=== PATIENT | male | born 1950 | race Caucasian/White ===

== ENCOUNTER 2017-06-07 13:02 | Inpatient (IN) | payer MEDICARE ==
[2017-06-07 13:27] VITALS: RESP 16
[2017-06-07] MEDS ORDERED: SODIUM CHLORIDE 0.9% 1,000 ML IV STA (13:36)
[2017-06-07] MEDS ORDERED: RX INFO: IV CONTRAST WAS GIVEN 1 EACH MISC MISCELLANE PRN (13:47)
[2017-06-07 14:14] LABS: Basophils % (A) 0 %; CH 31.5; CHCM 33.1; Eosinophils # (A) 0.2 k/uL (0-0.7); Eosinophils % (A) 1 %; HCT 45.8 % (39.0-53.0); HDW 2.27; HGB 14.9 gm/dL (13.0-17.5); Luc # (Auto) 0.18; Luc % (Auto) 2; Lymphocytes # (A) 2.9 k/uL (1.0-4.8); Lymphocytes % (A) 28 %; MCHC 32.5 g/dL (31.0-37.0); MCV 95.6 fL (80.0-100.0); Mean Platelet Volume 6.9; Monocytes # (A) 0.6 k/uL (0-1.0); Monocytes % (A) 5 %; Neutrophils # (A) 6.5 k/uL (1.3-7.7); Neutrophils % (A) 63 %; RBC 4.79 m/uL (4.30-5.90); RDW 13.1 % (11.5-15.5); WBC 10.3 k/uL (3.8-10.6); WBC (Perox) 10.04
[2017-06-07 14:17] LABS: Partial Thromboplastin Time 23.4 sec (22.0-30.0); Prothrombin Time 10.4 sec (9.0-12.0)
[2017-06-07 14:20] LABS: ALT 35 U/L (21-72); AST 24 U/L (17-59); Alkaline Phosphatase 63 U/L (38-126); Anion Gap 10 mmol/L; Blood Urea Nitrogen 13 mg/dL (9-20); Calcium 9.7 mg/dL (8.4-10.2); Carbon Dioxide 22 mmol/L (22-30); Chloride 106 mmol/L (98-107); Glucose 94 mg/dL (74-99); Non-African American GFR(MDRD) >60 (>60 ml/min/1.73 sqM); Potassium 4.6 mmol/L (3.5-5.1); Sodium 138 mmol/L (137-145); Total Bilirubin 0.7 mg/dL (0.2-1.3); Total Protein 7.5 g/dL (6.3-8.2)
--- NOTE | 2017-06-07 14:20 | ED ---
GI Bleed HPI - General Chief complaint: GI Bleed Stated complaint: Abd Pain/Rectal Bleeding Time Seen by Provider: 06/07/17 13:24 Source: patient, RN notes reviewed Mode of arrival: ambulatory Limitations: no limitations - History of Present Illness Initial comments: 67-year-old male presents emergency Department chief complaint abdominal pain, rectal bleeding. Patient states this started 48 hours ago. Patient states she' s had a history of of chronic constipation and history of rectal bleeding. He states that he occasionally does have to digitally disimpact himself and take a laxative. He states that he occasionally has bleeding at rest. Patient states bleeding stops after 24 hours but has not stopped this time. Patient states he also has abdominal pain in his mid abdomen which is abnormal for him. Patient denies any blood thinners denies any serious abdominal surgeries. He has had multiple colonoscopies in the past most recently 5 years ago. Patient denies headache, dizziness, chest pain, shortness breath, fever or chills. - Related Data Home Medications Medication Instructions Recorded Confirmed Linaclotide [Linzess] 145 mcg PO DAILY 06/07/17 06/07/17 Lisinopril [Zestril] 20 mg PO DAILY 06/07/17 06/07/17 oxyCODONE-APAP 10-325MG [Percocet 0.5 tab PO BID PRN 06/07/17 06/07/17 10-325 mg] Allergies Allergy/AdvReac Type Severity Reaction Status Date / Time No Known Allergies Allergy Verified 06/07/17 14:11 Review of Systems ROS Statement: Those systems with pertinent positive or pertinent negative responses have been documented in the HPI. ROS Other: All systems not noted in ROS Statement are negative. Past Medical History Past Medical History: Hypertension Additional Past Medical History / Comment(s): spinal cord injury History of Any Multi-Drug Resistant Organisms: None Reported Past Surgical History: Tonsillectomy Additional Past Surgical History / Comment(s): right ankle surgery Past Psychological History: No Psychological Hx Reported Smoking Status: Former smoker Past Alcohol Use History: Daily Past Drug Use History: Marijuana General Exam Limitations: no limitations General appearance: alert, in no apparent distress Head exam: Present: atraumatic, normocephalic, normal inspection Respiratory exam: Present: normal lung sounds bilaterally. Absent: respiratory distress, wheezes, rales, rhonchi, stridor Cardiovascular Exam: Present: regular rate, normal rhythm, normal heart sounds. Absent: systolic murmur, diastolic murmur, rubs, gallop, clicks GI/Abdominal exam: Present: soft, tenderness (Mild to moderate periumbilical tenderness), normal bowel sounds. Absent: distended, guarding, rebound, rigid Rectal exam: Present: bloody stool, hemorrhoids Back exam: Absent: CVA tenderness (R), CVA tenderness (L) Course Vital Signs 06/07/17 06/07/17 13:18 15:17 Temperature 97.6 F 98.0 F Pulse Rate 75 64 Respiratory 16 16 Rate Blood Pressure 170/94 165/90 O2 Sat by Pulse 98 99 Oximetry Medical Decision Making - Lab Data Result diagrams: 06/07/17 13:45 06/07/17 13:45 Lab Results 06/07/17 06/07/17 06/07/17 Range/Units 13:45 13:45 13:45 WBC 10.3 (3.8-10.6) k/uL RBC 4.79 (4.30-5.90) m/uL Hgb 14.9 (13.0-17.5) gm/dL Hct 45.8 (39.0-53.0) % MCV 95.6 (80.0-100.0) fL MCH 31.0 (25.0-35.0) pg MCHC 32.5 (31.0-37.0) g/dL RDW 13.1 (11.5-15.5) % Plt Count 398 (150-450) k/uL Neutrophils % 63 % Lymphocytes % 28 % Monocytes % 5 % Eosinophils % 1 % Basophils % 0 % Neutrophils # 6.5 (1.3-7.7) k/uL Lymphocytes # 2.9 (1.0-4.8) k/uL Monocytes # 0.6 (0-1.0) k/uL Eosinophils # 0.2 (0-0.7) k/uL Basophils # 0.0 (0-0.2) k/uL PT (9.0-12.0) sec INR (<1.2) APTT (22.0-30.0) sec Sodium 138 (137-145) mmol/L Potassium 4.6 (3.5-5.1) mmol/L Chloride 106 (98-107) mmol/L Carbon Dioxide 22 (22-30) mmol/L Anion Gap 10 mmol/L BUN 13 (9-20) mg/dL Creatinine 1.06 (0.66-1.25) mg/dL Est GFR (MDRD) Af Amer >60 (>60 ml/min/1.73 sqM) Est GFR (MDRD) Non-Af >60 (>60 ml/min/1.73 sqM) Glucose 94 (74-99) mg/dL Calcium 9.7 (8.4-10.2) mg/dL Magnesium 2.0 (1.6-2.3) mg/dL Total Bilirubin 0.7 (0.2-1.3) mg/dL AST 24 (17-59) U/L ALT 35 (21-72) U/L Alkaline Phosphatase 63 (38-126) U/L Total Creatine Kinase 44 L (55-170) U/L CK-MB (CK-2) 0.2 (0.0-2.4) ng/mL CK-MB (CK-2) Rel Index 0.5 Troponin I <0.012 (0.000-0.034) ng/mL Total Protein 7.5 (6.3-8.2) g/dL Albumin 4.4 (3.5-5.0) g/dL Lipase 48 (23-300) U/L Urine Color Urine Appearance (Clear) Urine pH (5.0-8.0) Ur Specific [place] (1.001-1.035) Urine Protein (Negative) Urine Glucose (UA) (Negative) Urine Ketones (Negative) Urine Blood (Negative) Urine Nitrite (Negative) Urine Bilirubin (Negative) Urine Urobilinogen (<2.0) mg/dL Ur Leukocyte Esterase (Negative) Urine RBC (0-5) /hpf Urine WBC (0-5) /hpf Ur Squamous Epith Cells (0-4) /hpf Urine Bacteria (None) /hpf Urine Mucus (None) /hpf 06/07/17 06/07/17 Range/Units 13:45 14:13 WBC (3.8-10.6) k/uL RBC (4.30-5.90) m/uL Hgb (13.0-17.5) gm/dL Hct (39.0-53.0) % MCV (80.0-100.0) fL MCH (25.0-35.0) pg MCHC (31.0-37.0) g/dL RDW (11.5-15.5) % Plt Count (150-450) k/uL Neutrophils % % Lymphocytes % % Monocytes % % Eosinophils % % Basophils % % Neutrophils # (1.3-7.7) k/uL Lymphocytes # (1.0-4.8) k/uL Monocytes # (0-1.0) k/uL Eosinophils # (0-0.7) k/uL Basophils # (0-0.2) k/uL PT 10.4 (9.0-12.0) sec INR 1.0 (<1.2) APTT 23.4 (22.0-30.0) sec Sodium (137-145) mmol/L Potassium (3.5-5.1) mmol/L Chloride (98-107) mmol/L Carbon Dioxide (22-30) mmol/L Anion Gap mmol/L BUN (9-20) mg/dL Creatinine (0.66-1.25) mg/dL Est GFR (MDRD) Af Amer (>60 ml/min/1.73 sqM) Est GFR (MDRD) Non-Af (>60 ml/min/1.73 sqM) Glucose (74-99) mg/dL Calcium (8.4-10.2) mg/dL Magnesium (1.6-2.3) mg/dL Total Bilirubin (0.2-1.3) mg/dL AST (17-59) U/L ALT (21-72) U/L Alkaline Phosphatase (38-126) U/L Total Creatine Kinase (55-170) U/L CK-MB (CK-2) (0.0-2.4) ng/mL CK-MB (CK-2) Rel Index Troponin I (0.000-0.034) ng/mL Total Protein (6.3-8.2) g/dL Albumin (3.5-5.0) g/dL Lipase (23-300) U/L Urine Color Yellow Urine Appearance Cloudy (Clear) Urine pH 6.5 (5.0-8.0) Ur Specific [place] 1.020 (1.001-1.035) Urine Protein 1+ H (Negative) Urine Glucose (UA) Negative (Negative) Urine Ketones 1+ H (Negative) Urine Blood Trace H (Negative) Urine Nitrite Positive (Negative) Urine Bilirubin Negative (Negative) Urine Urobilinogen <2.0 (<2.0) mg/dL Ur Leukocyte Esterase Moderate H (Negative) Urine RBC 2 (0-5) /hpf Urine WBC 15 H (0-5) /hpf Ur Squamous Epith Cells <1 (0-4) /hpf Urine Bacteria Moderate H (None) /hpf Urine Mucus Rare H (None) /hpf Disposition Clinical Impression: GI bleed, Colitis, UTI (urinary tract infection) Disposition: ADMITTED IP TO THIS HOSP Condition: Stable Referrals: Naina Dickson MD [Primary Care Provider] - 1-2 days Time of Disposition: 15:40
[2017-06-07 14:28] LABS: Creatine Kinase 44 U/L (55-170)
[2017-06-07 14:29] LABS: Appearance,Urine Cloudy (Clear); Bacteria,Urine Moderate /hpf; Bilirubin,Urine Negative (Negative); Glucose,Urine (UA) Negative (Negative); Ketones,Urine 1+ (Negative); Leukocyte Esterase,Urine Moderate (Negative); Mucus,Urine Rare /hpf; Nitrite,Urine Positive (Negative); PH, Urine 6.5 (5.0-8.0); Particle Count 101169; Protein,Urine 1+ (Negative); RBC,Urine 2 /hpf (0-5); Squamous Epithelial Cell,Urine <1 /hpf (0-4); UA Billing (MACRO vs. MICRO) MICRO; Urobilinogen,Urine <2.0 mg/dL (<2.0); WBC,Urine 15 /hpf (0-5)
[2017-06-07 14:40] LABS: Creatine Kinase MB 0.2 ng/mL (0.0-2.4); Troponin I <0.012 ng/mL (0.000-0.034)
--- NOTE | 2017-06-07 15:34 | CT ---
EXAMINATION TYPE: CT abdomen pelvis w con DATE OF EXAM: 06/07/2017 COMPARISON: NONE HISTORY: Constipation and rectal bleeding. CT DLP: 1979 mGycm Automated exposure control for dose reduction was used. TECHNIQUE: Helical acquisition of images from the lung bases through the pelvis have been completed. CONTRAST: Performed without Oral Contrast and with IV Contrast, patient injected with 100 mL of Omnipaque 300. FINDINGS: LUNG BASES: No significant abnormality is appreciated. AORTA: No significant abnormality is appreciated. LIVER/GB: Hypodense focus within the posterior right lobe of the liver measures approximately 14 mm a nd shows a suggestion of nodular enhancement following the delayed scan. The gallbladder is normal. PANCREAS: No significant abnormality is seen. SPLEEN: No significant abnormality is seen. ADRENALS: No significant abnormality is seen. KIDNEYS: Cystic focus at the upper pole of the left kidney measures approximately 16 mm. Lower pole c ystic lesion within the right kidney measures 4.3 cm. No hydronephrosis or ureteral calcification dolly aterally REPRODUCTIVE ORGANS: Prostate is enlarged and shows associated calcification BOWEL: Abnormal thickening of the sigmoid colon is present, there is pericolonic inflammatory change . FREE AIR: No Free Air visible. ASCITES: Minimal fluid present within the pelvis.. PELVIC ADENOPATHY: None visualized. RETROPERITONEAL ADENOPATHY: No Retroperitoneal Adenopathy visible. URINARY BLADDER: Markedly thickened wall likely due to bladder outlet obstruction, correlate to excl ude cystitis OSSEOUS STRUCTURES: There is a levoscoliosis centered at L1. There is a compression fracture present at L1 loss of height of approximately 50%. Retropulsed fragment into the spinal canal extends proxim ally 6 mm resulting in moderate spinal stenosis.. IMPRESSION: CORRELATE FOR COLITIS. FINDINGS MAY REPRESENT HEMANGIOMA WITHIN THE LIVER, CONSIDER FOLLOW-UP. COMPRE SSION FRACTURE LUMBAR SPINE. ADDITIONAL FINDINGS ABOVE.
[2017-06-07] MEDS ORDERED: ONDANSETRON 4 MG/2 ML VIAL IVP PRN (15:41)
[2017-06-07] MEDS ORDERED: NALOXONE 0.4 MG/ML 1 ML VIAL IV PRN (15:41)
[2017-06-07] MEDS ORDERED: ACETAMINOPHEN TAB 325 MG TAB PO PRN (15:41)
[2017-06-07] MEDS ORDERED: HYDROcodone/APAP 5-325MG 1 EACH TAB PO PRN (15:41)
[2017-06-07] MEDS ORDERED: PANTOPRAZOLE 40 MG/10 ML VIAL IV SCH (15:45)
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
[2017-06-07 17:20] VITALS: BP 168/89; PULSE 70; TEMP 98.2
--- NOTE | 2017-06-07 17:20 | P.DS ---
Providers Date of admission: 06/07/17 15:54 Attending physician: Evangelista Boo Consults: 06/07/17 15:41 Consult Physician Stat Consulting Provider: Denver Smith Consult Reason/Comments: GI bleed Do you want consulting provider notified?: Yes Primary care physician: Yessi Chew [facility] Course: Please refer to HPI Patient Condition at Discharge: Stable Plan - Discharge Summary New Discharge Prescriptions: New Ciprofloxacin HCl [Cipro] 500 mg PO Q12HR #14 tablet metroNIDAZOLE [Flagyl] 500 mg PO Q8HR #21 tab Polyethylene Glycol 3350 [Miralax] 17 gm PO DAILY PRN #15 packet PRN Reason: Constipation No Action oxyCODONE-APAP 10-325MG [Percocet 10-325 mg] 0.5 tab PO BID PRN PRN Reason: Pain Lisinopril [Zestril] 20 mg PO DAILY Linaclotide [Linzess] 145 mcg PO DAILY Discharge Medication List Ciprofloxacin HCl [Cipro] 500 mg PO Q12HR #14 tablet 06/07/17 [Rx] Linaclotide [Linzess] 145 mcg PO DAILY 06/07/17 [History] Lisinopril [Zestril] 20 mg PO DAILY 06/07/17 [History] Polyethylene Glycol 3350 [Miralax] 17 gm PO DAILY PRN #15 packet 06/07/17 [Rx] metroNIDAZOLE [Flagyl] 500 mg PO Q8HR #21 tab 06/07/17 [Rx] oxyCODONE-APAP 10-325MG [Percocet 10-325 mg] 0.5 tab PO BID PRN 06/07/17 [ History] Follow up Appointment(s)/Referral(s): Denver Smith MD [STAFF PHYSICIAN] - 1 Week Naina Dickson MD [Primary Care Provider] - 3 Days Patient Instructions/Handouts: Rectal Bleeding (DC), Urinary Tract Infection in Men (DC) Discharge Disposition: HOME SELF-CARE
== END 2017-06-07 17:36 | disposition home or self-care (01) | DRG 394 ==
LOC: EC 13:02 → 5MS5E 15:54
PROVIDERS: ADMIT Internal Medicine; ATTEND Internal Medicine
DX: K64.9 Unspecified hemorrhoids (principal); N39.0 Urinary tract infection, site not specified; I10 Essential (primary) hypertension; K52.9 Noninfective gastroenteritis and colitis, unspecified; K59.09 Other constipation; Z79.899 Other long term (current) drug therapy; Z87.891 Personal history of nicotine dependence; Z90.49 Acquired absence of other specified parts of digestive tract; Z87.828 Personal history of other (healed) physical injury and trauma
CPT/HCPCS: 36415; 74177; 80053; 81001; 82550; 82553; 83690; 83735; 84484; 85025; 85610; 85730; 96361; 96374; 99285

== ENCOUNTER 2022-04-07 09:54 | Emergency (ER) | payer MEDICARE ==
[2022-04-07 10:31] VITALS: BP 137/97; PULSE 69; RESP 16; TEMP 98.2
--- NOTE | 2022-04-07 10:55 | ED ---
Extremity Problem HPI - General Chief complaint: Extremity Problem,Nontraumatic Stated complaint: Thigh pain Time Seen by Provider: 04/07/22 10:37 Source: patient, RN notes reviewed Mode of arrival: ambulatory Limitations: no limitations - History of Present Illness Initial comments: Patient is a 71-year-old male presents to the emergency with complaints of right thigh pain ongoing intermittently over the last few weeks. He reports that the pain is severe when it occurs and a shooting-like sensation. He does report previous spinal cord injury with occasional sciatica and he reports that the symptoms are not the same as his known sciatica. He denies any swelling or trauma. He states that over the last 2 weeks the pain has been getting more often and increase in intensity when it occurs however he continues to be intermittent. He denies any focal weakness, bowel or bladder incontinence or other red flag symptoms for cardia equina syndrome. He has in addition to his spinal cord injury past medical history for hypertension. - Related Data Home Medications Medication Instructions Recorded Confirmed Linaclotide [Linzess] 145 mcg PO DAILY 06/07/17 06/07/17 lisinopriL [Zestril] 20 mg PO DAILY 06/07/17 06/07/17 oxyCODONE-APAP 10-325MG [Percocet 0.5 tab PO BID PRN 06/07/17 06/07/17 10-325 mg] Previous Rx's Medication Instructions Recorded Ciprofloxacin HCl [Cipro] 500 mg PO Q12HR #14 tablet 06/07/17 metroNIDAZOLE [Flagyl] 500 mg PO Q8HR #21 tab 06/07/17 polyethylene glycoL 3350 [Miralax] 17 gm PO DAILY PRN #15 packet 06/07/17 Allergies Allergy/AdvReac Type Severity Reaction Status Date / Time No Known Allergies Allergy Verified 04/07/22 10:31 Review of Systems ROS Statement: Those systems with pertinent positive or pertinent negative responses have been documented in the HPI. ROS Other: All systems not noted in ROS Statement are negative. Past Medical History Past Medical History: Hypertension Additional Past Medical History / Comment(s): spinal cord injury History of Any Multi-Drug Resistant Organisms: Other MDRO Date of last positivie culture/infection: 2007 MDRO Source:: ankle Past Surgical History: Tonsillectomy Additional Past Surgical History / Comment(s): right ankle surgery Past Psychological History: No Psychological Hx Reported Smoking Status: Current every day smoker Past Alcohol Use History: Occasional Past Drug Use History: Marijuana General Exam Limitations: no limitations General appearance: alert, in no apparent distress Head exam: Present: atraumatic, normocephalic, normal inspection Eye exam: Present: normal appearance, PERRL, EOMI. Absent: scleral icterus, conjunctival injection, periorbital swelling ENT exam: Present: normal exam, mucous membranes moist Neck exam: Present: normal inspection, full ROM Respiratory exam: Absent: respiratory distress, accessory muscle use Right Upper Leg exam: Present: normal inspection, full ROM, tenderness (Upper groin aspect medial, mild). Absent: swelling, laceration, ecchymosis, deformity, crepitus, dislocation, erythema Neurovascular tendon exam: Present: no vascular compromise Gait: observed and normal Back exam: Present: normal inspection. Absent: tenderness, muscle spasm, paraspinal tenderness, vertebral tenderness Neurological exam: Present: alert, oriented X3, CN II-XII intact Psychiatric exam: Present: normal affect, normal mood Skin exam: Present: warm, dry, intact, normal color. Absent: rash Course Vital Signs 04/07/22 10:26 Temperature 98.2 F Pulse Rate 69 Respiratory 16 Rate Blood Pressure 137/97 O2 Sat by Pulse 98 Oximetry Medical Decision Making - Medical Decision Making 71-year-old male presenting to the emergency room with complaints of intermittent stabbing like pain to the right thigh without any known trauma however with abrupt onset. Will check x-ray of right thigh. No indication for laboratory studies at this time. Denies any analgesic need. X-ray negative for acute findings. Patient anxious regarding possibility of a TVT low probability of DVT given lack of swelling and intermittent pain however will check venous Doppler to rule out DVT. Continues to deny any analgesic need. Doppler negative for DVT. Findings discussed with patient at length and advise given location and pain intensity with intermittent symptoms likely secondary to spinal cord injury with radiculopathy. Encouraged range of motion and anti-inflammatory use. Advised follow-up with primary care provider for further evaluation and treatment. Case discussed with Dr. Mora. - Radiology Data Radiology results: report reviewed, image reviewed Ultrasound venous duplex right lower extremity negative for DVT X-ray right femur no acute osseous pathology, joint dislocation or soft tissue swelling. Disposition Clinical Impression: Right thigh pain Disposition: HOME SELF-CARE Condition: Stable Instructions (If sedation given, give patient instructions): Lumbar Radiculopathy (ED), Arthralgia (ED) Additional Instructions: Please utilize ibuprofen as needed to help reduce inflammation in your spine to help prevent sciatica and radiculopathy pain. Continue your already prescribed opiate pain medication as your current primary care provider recommends for pain as well. Please return to the Emergency Department if symptoms worsen or any other concerns. Is patient prescribed a controlled substance at d/c from ED?: No Referrals: Naina Dickson MD [Primary Care Provider] - 1-2 days Time of Disposition: 13:10
--- NOTE | 2022-04-07 11:50 | XR ---
EXAMINATION TYPE: XR femur RT DATE OF EXAM: 04/07/2022 11:09 AM INDICATION: Patient age:Male; 71 years old; Reason for study: pain; COMPARISON: None TECHNIQUE: The right femur was examined in frontal and lateral projections. FINDINGS: No evidence of acute osseous pathology, joint dislocation, or soft tissue swelling. Pelvic phleboliths identified. No sclerotic or lytic lesion identified. IMPRESSION: No acute osseous pathology.
--- NOTE | 2022-04-07 13:21 | US ---
EXAMINATION TYPE: US venous doppler duplex LE RT DATE OF EXAM: 04/07/2022 12:10 PM COMPARISON: Right lower extremity venous Doppler study 01/22/2011 CLINICAL HISTORY: pain. SIDE PERFORMED: Right TECHNIQUE: The lower extremity deep venous system is examined utilizing real time linear array sonog kevin with graded compression, doppler sonography and color-flow sonography. VESSELS IMAGED: Common Femoral Vein Deep Femoral Vein Greater Saphenous Vein * Femoral Vein Popliteal Vein Small Saphenous Vein * Proximal Calf Veins (* superficial vessels) Grayscale, color doppler, spectral doppler imaging performed of the deep veins of the right lower ext remity. There is normal flow, compressibility, vascular waveforms. Right Leg: Negative for DVT IMPRESSION: No right lower extremity deep venous thrombosis.
== END 2022-04-07 13:34 | disposition home or self-care (01) ==
LOC: EC 09:54
DX: M79.651 Pain in right thigh (principal); I10 Essential (primary) hypertension; F17.200 Nicotine dependence, unspecified, uncomplicated
CPT/HCPCS: 99284

== ENCOUNTER → 2023-03-29 | Outpatient (CLI) | payer MEDICARE ==
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
== END | disposition home or self-care (01) ==
LOC: RADXRMAIN 09:51
PROVIDERS: ATTEND Physical Medicine & Rehabilitation
DX: S32.010A Wedge compression fracture of first lumbar vertebra, initial encounter for closed fracture (principal); M51.37 Other intervertebral disc degeneration, lumbosacral region; M47.816 Spondylosis without myelopathy or radiculopathy, lumbar region; X58.XXXA Exposure to other specified factors, initial encounter
CPT/HCPCS: 72110

== ENCOUNTER → 2023-08-30 | Outpatient (CLI) | payer MEDICARE ==
--- NOTE | 2023-08-30 11:39 | CTL ---
EXAMINATION TYPE: CT Low Dose Lung DATE OF EXAM ORDERED: 08/30/2023 HISTORY: Lung cancer screening CT DLP: 128.[address] CTDI: 3.2 mGy Automated exposure control for dose reduction was used. SCREENING VISIT: First COMPARISON: None TECHNIQUE: Low dose computed tomography scan was performed through the chest at 1 mm thick sections a nd reconstructed images in multiple planes at 1 mm and [address] DIAGNOSTIC QUALITY: Satisfactory FINDINGS: There are 2 or 3 tiny 2 to 3 mm pulmonary nodules. Note is suspicious lung mass or nodule is seen. There is no abnormal airspace/consolidated density or abnormal interstitial density. There is no pleural effusion, pleural thickening or pneumothorax. There is mild aneurysmal dilatation ascending thoracic aorta which measures approximately 4 cm. There is no mediastinal, hilar or axillary adenopathy. Limited scanning through the upper abdomen reveals no gross abnormality. No focal osseous lesions are seen. IMPRESSION: 1. BI-RADS Category 2 benign findings. Continue routine screening at yearly intervals. 2. Mild aneurysmal dilatation ascending thoracic aorta measuring 4 cm. 3. No acute cardiopulmonary disease.
--- NOTE | 2023-08-30 11:41 | US ---
EXAMINATION TYPE: US Aorta Screening DATE OF EXAM: 08/30/2023 COMPARISON: 06/07/2017 CLINICAL INDICATION: Male, 73 years old with history of Z13.6 SCREENING AAA I65.23 OCCLUSION AND STEN OSIS; SCREENING TECHNIQUE: Multiple sonographic images of the abdominal aorta are obtained. FINDINGS: EXAM MEASUREMENTS: Abdominal Aorta: in cm Proximal: 2.2x2.8 Mid: 1.9x2.2 Distal: 1.7x2.1 Bifurcation: Right Illiac: 0.9x1.1 Left Illiac: 1.0x1.1 Exam limited by bowel gas. IMPRESSION: No evidence for aortic aneurysm.
--- NOTE | 2023-08-30 12:23 | US ---
EXAMINATION TYPE: US carotid duplex BILAT DATE OF EXAM: 08/30/2023 COMPARISON: NONE CLINICAL INDICATION: Male, 73 years old with history of Z13.6 SCREENING AAA I65.23 OCCLUSION AND STEN OSIS; SCREENING TECHNIQUE: Carotid duplex ultrasound examination. Indirect Doppler criteria was utilized. 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 Criteria for Assigning % of Stenosis / Diameter reduction (Estimation based on the indirect measurements of the internal carotid artery velocities (ICA PSV). 1. Normal (no stenosis)=ICA PSV < 125 cm/s: ratio < 2.0: ICA EDV<40 cm/s. 2. Less than 50% stenosis=ICA PSV < 125 cm/s: ratio < 2.0: ICA EDV<40 cm/s. 3. 50 to 69% stenosis=ICA PSV of 125 to 230 cm/s: ration 2.0 ? 4.0: ICA EDV 40-100 cm/s. 4. Greater than 70% stenosis to near occlusion= ICA PSV > 230 cm/s: ratio > 4.0: ICA EDV > 100 cm/s. 5. Near occlusion= ICA PSV velocities may be low or undetectable: variable ratio and ICA EDV. 6. Total occlusion=unable to detect flow.
== END | disposition home or self-care (01) ==
LOC: RADUSWWP 09:33
PROVIDERS: ATTEND Internal Medicine
DX: Z12.2 Encounter for screening for malignant neoplasm of respiratory organs (principal); Z13.6 Encounter for screening for cardiovascular disorders; I65.23 Occlusion and stenosis of bilateral carotid arteries; I71.21 Aneurysm of the ascending aorta, without rupture; Z87.891 Personal history of nicotine dependence
CPT/HCPCS: 71271; 76706; 93880

== ENCOUNTER → 2023-11-04 | Outpatient (CLI) | payer MEDICARE ==
--- NOTE | 2023-11-04 14:24 | CA ---
Transthoracic Echo Report Name: Brodie Dominguez Age: 73 Gender: M : 1950 Exam Date: 11/04/2023 13:27 Exam Location: [facility] Ht (in): 75 Wt (lb): 213 Ordering Physician: Miri Perea MD Attending/Referring Phys: Miri Perea MD Service Center Technician Modesta Osborn RCS Procedure CPT: Indications: R93.[address] chest Cardiac Hx: Technical Quality: Fair Contrast 1: Total Dose (mL): Contrast 2: Total Dose (mL): MEASUREMENTS (Male / Female) Normal Values 2D ECHO LV Diastolic Volume MOD BP 112.7 cm??? 67 - 155 / 56 - 104 cm??? LV Systolic Volume MOD BP 42.9 cm??? 22 - 58 / 19 - 49 cm??? LV Ejection Fraction MOD BP 61.9 % >= 55 % LV Cardiac Index MOD BP 2335.4 cm???/min???m??? LV Diastolic Volume MOD 4C 105.5 cm??? LV Systolic Volume MOD 4C 47.4 cm??? LV Ejection Fraction MOD 4C 55.1 % LV Cardiac Index MOD 4C 1944.7 cm???/min???m??? LV Diastolic Length 4C 9.4 cm LV Systolic Length 4C 7.9 cm LV Diastolic Volume MOD 2C 114.7 cm??? LV Systolic Volume MOD 2C 36.0 cm??? LV Ejection Fraction MOD 2C 68.6 % LV Cardiac Index MOD 2C 2630.4 cm???/min???m??? LV Diastolic Length 2C 9.9 cm LV Systolic Length 2C 7.3 cm LA Volume 53.7 cm??? 18 - 58 / 22 - 52 cm??? LA Volume Index 23.7 cm???/m??? 16 - 28 cm???/m??? DOPPLER AV Peak Velocity 137.5 cm/s AV Peak Gradient 7.6 mmHg AV Mean Velocity 89.6 cm/s AV Mean Gradient 3.7 mmHg AV Velocity Time Integral 22.9 cm LVOT Peak Velocity 123.7 cm/s LVOT Peak Gradient 6.1 mmHg LVOT Velocity Time Integral 19.5 cm MV Area PHT 3.7 cm??? Mitral E Point Velocity 48.1 cm/s Mitral A Point Velocity 81.7 cm/s Mitral E to A Ratio 0.6 MV Deceleration Time 204.3 ms FINDINGS Left Ventricle Left ventricular ejection fraction is estimated at 55-60 %. No obvious regional wall motion abnormalities. Left ventricular cavity size normal. Left ventricular wall thickness normal. Right Ventricle Normal right ventricular size and function. Unable to estimate right ventricular systolic function. Right Atrium Normal right atrial size by visual. Left Atrium Normal left atrial size. Mitral Valve Structurally normal mitral valve. No evidence for mitral valve prolapse. No mitral stenosis. No mitral regurgitation. Aortic Valve Aortic valve not well visualized. No aortic valve stenosis or regurgitation. Tricuspid Valve Structurally normal tricuspid valve. No tricuspid stenosis. No tricuspid regurgitation. Pulmonic Valve Structurally normal pulmonic valve. No pulmonic regurgitation. No pulmonic stenosis. Pericardium No pericardial effusion. Aorta Aortic root and proximal ascending aorta not well visualized. CONCLUSIONS Left ventricular ejection fraction 55-60% No mitral regurgitation No tricuspid regurgitation No pericardial effusion Previewed by: Dr. Wilfrido Valencia DO (Electronically Signed) Final Date: 04 November 2023 14:23
== END | disposition home or self-care (01) ==
LOC: RADECHMAIN 13:17
PROVIDERS: ATTEND Internal Medicine
DX: R93.89 Abnormal findings on diagnostic imaging of other specified body structures (principal)
CPT/HCPCS: 93306

== ENCOUNTER → 2023-12-31 | Day surgery (SDC) | payer MEDICARE ==
[2023-12-27 12:01] VITALS: BMI 26.9
[~2023-12-31] MED LIST: LIDOCAINE 1% (10MG/ML) FOR IV START INTRADERMA PRN; PROPOFOL 10 MG/ML 20 ML VIAL IV ONE
[2023-12-31] MEDS: LACTATED RINGERS 1,000 ML IV SCH (09:40)
[2023-12-31 09:48] VITALS: TEMP 98.1
--- NOTE | 2023-12-31 10:12 | P.PCN ---
Date of Procedure: 12/31/23 Procedure(s) Performed: BRIEF HISTORY: Patient is a 73-year-old pleasant white male scheduled for an elective colonoscopy as a part of screening for colon cancer. PROCEDURE PERFORMED: Colonoscopy with snare polypectomy. PREOPERATIVE DIAGNOSIS: Screening for colon cancer. IV sedation per Anesthesia. PROCEDURE: After informed consent was obtained, the patient, was brought into the endoscopy unit. IV sedation was administered by Anesthesia under continuous monitoring. Digital rectal examination was normal. Initially the Olympus CF-160 flexible video colonoscope was then inserted in the rectum, gradually advanced into the cecum without any difficulty. Careful examination was performed as the scope was gradually being withdrawn. Ileocecal valve and the appendiceal orifice were visualized and appeared normal. Prep was excellent. Mucosa of the cecum, ascending colon, appeared normal. The hepatic flexure there was a 7 mm polyp removed by snare polypectomy. In the transverse colon there was a 5 mm x 2 polyp removed by snare polypectomy. In the descending colon there was a 6 mm polyp removed with snare polypectomy. Rest of the transverse colon, descending colon, sigmoid colon, and rectum appeared normal. Retroflexion was performed in the rectum and no lesions were seen. The patient tolerated the procedure well. IMPRESSION: 7 mm hepatic flexure polyp status post cold snare polypectomy 5 mm x 2 transverse colon polyp status post polypectomy 6 mm descending colon polyp status post polypectomy Small internal hemorrhoids RECOMMENDATIONS: Findings of this examination were discussed with the patient as well as his family. He was advised to follow-up with the biopsy results. If the biopsies reveal adenoma, he can have repeat colonoscopy in 3 years..
[2023-12-31 10:47] VITALS: BP 152/83; PULSE 63
[2023-12-31 10:48] VITALS: RESP 14
== END ==
LOC: ORWHC2ENDO 08:59
PROVIDERS: ATTEND Internal Medicine Gastroenterology
DX: Z12.11 Encounter for screening for malignant neoplasm of colon (principal); D12.3 Benign neoplasm of transverse colon; D12.4 Benign neoplasm of descending colon; K64.8 Other hemorrhoids; I10 Essential (primary) hypertension; E78.5 Hyperlipidemia, unspecified; J44.9 Chronic obstructive pulmonary disease, unspecified; M19.90 Unspecified osteoarthritis, unspecified site; F41.9 Anxiety disorder, unspecified; Z79.899 Other long term (current) drug therapy; Z87.891 Personal history of nicotine dependence
CPT/HCPCS: 88305; 45385; J2704

== ENCOUNTER → 2024-08-31 | Outpatient (CLI) | payer MEDICARE ==
--- NOTE | 2024-08-31 09:46 | CTL ---
EXAMINATION TYPE: CT Low Dose Lung DATE OF EXAM ORDERED: 08/31/2024 COMPARISON: CT Low Dose Lung 08/30/2023 CLINICAL INDICATION: Male, 74 years old with history of Z87.891 personal hx tobacco use; PHH, former smoker, quit x2 years ago,smoked 1/2 PPD x 50 years., Lung cancer screening, History of Smoking/tobac co use. TECHNIQUE: Low dose computed tomography scan was performed through the chest at 1 mm thick sections a nd reconstructed images in multiple planes at 1 mm and [address] DLP: 151.[address] CTDI: 3.8 mGy Automated exposure control for dose reduction was used. CT DIAGNOSTIC QUALITY: Satisfactory FINDINGS: Nodules: Stable 2.7 mm pulmonary nodule along the left major fissure (series 6, image 33). Stable 1.8 mm pulmonary nodule close to the right major fissure (series 6, image 31). Stable right apical 3.7 mm pulmonary nodule (series 6, image 10). Stable right middle lobe 3.3 mm pulmonary nodule (series 6, image 45). LUNGS: COPD: Severity: Mild Fibrosis: Severity: None Lymph nodes: None Other findings: None RIGHT PLEURAL SPACE: Effusion: None Calcification: None Thickening: None Pneumothorax: None LEFT PLEURAL SPACE: Effusion: None Calcification: None Thickening: None Pneumothorax: None HEART: Heart Size: Normal size, dense mitral annulus calcifications. Coronary Calcification: None Pericardial Effusion: None OTHER FINDINGS: Upper abdomen: Small hiatal hernia. Bony thorax: Levocurvature of the thoracolumbar spine. Redemonstration of compression deformities inv olving the T3 and L1 vertebral bodies. Supraclavicular region: None Other: Mild atherosclerotic calcification of the aortic arch. Stable aneurysmal dilatation of the asc ending thoracic aorta measuring up to 4 cm. IMPRESSION: 1. Few stable pulmonary nodules measuring less than 4 mm. No new or enlarging pulmonary nodules. 2. Mild COPD changes. 3. Stable ascending thoracic aortic aneurysm measuring [address] LUNG RAD AND [address] CHEST RECOMMENDATION: Lung-Rad 2 Benign Appearance or Behavior: Continue annual sc reening with LDCT in 12 months. S Modifier (other clinically significant findings): None [facility], , 08/31/2024 9:43 AM
== END | disposition home or self-care (01) ==
LOC: RADCTMAIN 09:13
PROVIDERS: ATTEND Internal Medicine
DX: Z12.2 Encounter for screening for malignant neoplasm of respiratory organs (principal); J44.9 Chronic obstructive pulmonary disease, unspecified; I71.21 Aneurysm of the ascending aorta, without rupture; R91.8 Other nonspecific abnormal finding of lung field; Z87.891 Personal history of nicotine dependence
CPT/HCPCS: 71271